=== PATIENT | female | born 1980 | race Caucasian/White ===

== ENCOUNTER 2018-06-25 12:37 | Emergency (ER) | payer OTHER ==
[~2018-06-25] VITALS: Ht 170.2 cm; Wt 65.0 kg
[2018-06-25 12:44] VITALS: BP 121/73; PULSE 68; RESP 18; Ht 170.2 cm; Wt 65.0 kg
[2018-06-25] MEDS ORDERED: IBUP-1542 PO (13:36)
--- NOTE | 2018-06-25 15:08 | ERD ---
ER Documentation Chief Complaint Chief Complaint left lower leg pain with tingling, sent for ultrasound HPI 38-year-old female presenting with lower leg tingling and pain. Patient states her father had history of blood clots and she is concerned about a possible blood clot in her calf. She denies any recent travel. No recent surgeries. Does not smoke. No cancer history. Denies any shortness of breath. LNMP last week. Has not taken medications for symptoms. Medical history PCOS. NKDA. Surgical history Lasix. Social history denies ROS All systems reviewed and are negative except as per history of present illness. Medications Home Meds Active Scripts Ibuprofen* (Motrin*) 600 Mg Tab, 600 MG PO Q6, #30 TAB Prov:CHRISTIANE HILL PA-C 06/25/18 Allergies Allergies: Coded Allergies: No Known Allergy (Unverified , 06/25/18) PMhx/Soc History of Surgery: No Anesthesia Reaction: No Hx Neurological Disorder: No Hx Respiratory Disorders: No Hx Cardiac Disorders: No Hx Psychiatric Problems: No Hx Miscellaneous Medical Probl: Yes Hx Alcohol Use: No Hx Substance Use: No Hx Tobacco Use: No Smoking Status: Never smoker FmHx Family History: No diabetes, No coronary disease, No other Physical Exam Vitals Vital Signs Date Temp Pulse Resp B/P (MAP) Pulse Ox O2 O2 Flow FiO2 Time Delivery Rate 06/25/18 98.2 68 18 121/73 98 12:44 (89) Physical Exam GENERAL: The patient is well-appearing, well-nourished, in no acute distress CHEST: Clear to auscultation bilaterally. There are no rales, wheezes or rhonchi. HEART: Regular rate and rhythm. No murmurs, clicks, rubs or gallops. EXTREMITIES: Compartments soft. No erythema or swelling noted. Mild test palpation to the lateral aspect of the calf. No cording felt. Pulses intact.. NEUROLOGIC: Alert and oriented. Motor strength in all 4 extremities with 5 out of 5 strength. Sensation grossly intact. SKIN: There is no apparent rash or petechiae. The skin is warm and dry. Procedures/MDM DIAGNOSTIC IMAGING REPORT Patient: EULALIA ECHEVERRIA : 1980 Age: 38 Sex: F MR #: [id number] DOS: 06/25/18 1305 Ordering MD: JAMEL HILL PA-C Location: [facility] Room/Bed: PROCEDURE: US Lower extremity Venous. CLINICAL INDICATION: leg edema pain TECHNIQUE: Multiple sonographic images of the left lower extremity deep venous system was obtained utilizing grayscale, color-flow, compressive sonography and doppler imaging with augmentation. The images were reviewed on a PACS workstation. COMPARISON: None. FINDINGS: There is normal compressibility and flow within the left common femoral, femoral, posterior tibial, peroneal and popliteal veins. RPTAT: AA IMPRESSION: No sonographic evidence for deep venous thrombosis. MDM: 38-year-old female presenting with pain to her left calf. There is no signs of DVT on ultrasound. I have low suspicion is exam is non-concerning. Patient likely has muscular skeletal strain versus nerve inflammation. Patient is discharged stricter precautions and told to follow-up with primary care within 1-2 days for close evaluation. I have low suspicion for infectious etiology. I have low suspicion for compartment disorder. Patient is discharged stricter precautions. All questions answered at discharge Departure Diagnosis: Primary Impression: Pain of left leg Condition: Stable Patient Instructions: Muscle Strain, Extremity Referrals: [facility] YOU HAVE RECEIVED A MEDICAL SCREENING EXAM AND THE RESULTS INDICATE THAT YOU DO NOT HAVE A CONDITION THAT REQUIRES URGENT TREATMENT IN THE EMERGENCY DEPARTMENT. FURTHER EVALUATION AND TREATMENT OF YOUR CONDITION CAN WAIT UNTIL YOU ARE SEEN IN YOUR DOCTORS OFFICE WITHIN THE NEXT 1-2 DAYS. IT IS YOUR RESPONSIBILITY TO MAKE AN APPOINTMENT FOR FOLOW-UP CARE. IF YOU HAVE A PRIMARY DOCTOR --you should call your primary doctor and schedule an appointment IF YOU DO NOT HAVE A PRIMARY DOCTOR YOU CAN CALL OUR PHYSICIAN REFERRAL HOTLINE AT IF YOU CAN NOT AFFORD TO SEE A PHYSICIAN YOU CAN CHOSE FROM THE FOLLOWING [facility] [address] [facility]. [facility] [address] [facility] [facility] [address] [facility]. [facility] [address] [facility] [facility] [address] [facility]. [facility]. [address] Additional Instructions: FOLLOW UP WITH YOUR PRIMARY CARE PHYSICIAN TOMORROW.Return to this facility if you are not improving as expected. CHRISTIANE HILL PA-C Jun 25, 2018 15:08
== END 2018-06-25 14:00 | disposition home or self-care (01) ==
LOC: FTE 12:37
DX: M79.662 Pain in left lower leg (principal)
CPT/HCPCS: 93971